=== PATIENT | male | born 1990 | race Two or more races ===

== ENCOUNTER 2020-04-09 09:34 | Outpatient (REF) | payer OTHER, SELFPAY | END 2020-04-09 09:35 | disposition home or self-care (01) | LOC: HO.LAB 09:34 | PROVIDERS: PCP Internal Medicine; Visit Provider Internal Medicine | DX: Z20.828 Contact with and (suspected) exposure to other viral communicable diseases (principal) | CPT/HCPCS: C9803; U0003 ==

== ENCOUNTER 2020-04-19 15:00 | Outpatient (REF) | payer OTHER, SELFPAY | END 2020-04-19 15:01 | disposition home or self-care (01) | LOC: HO.LAB 15:00 | PROVIDERS: Visit Provider Internal Medicine | DX: Z20.828 Contact with and (suspected) exposure to other viral communicable diseases (principal) | CPT/HCPCS: C9803; U0003 ==